=== PATIENT | male | born 1990 | race Caucasian/White ===

== ENCOUNTER 2017-04-16 18:09 | Emergency (ER) | payer OTHER ==
[~2017-04-16] VITALS: Ht 172.7 cm; Wt 83.9 kg
[2017-04-16 19:11] VITALS: BP 124/76
[2017-04-16] MEDS ORDERED: TETRACAINE 0.5% OPHTH SOLUTION 4ML BOTTLE. OS ONE (19:30)
--- NOTE | 2017-04-16 19:31 | PHYS DOC ---
Past Medical History Past Medical History: No Pertinent History Past Surgical History: No Surgical History Alcohol Use: Occasionally Drug Use: None Adult General Chief Complaint Chief Complaint: FOREIGN BODY/EYES [facility] HPI Patient is a 26 year old male presents to the emergency department stating that he has a foreign body in his left eye. He is unsure if it's a piece of metal or paint fragment. He states he was working on his car approximately 4 hours ago when something fell into his left eye. He has not tried to irrigate the eye nor is he tried to remove the foreign object. Patient denies any blurred vision, he denies any visual difficulty. He states his last tetanus was a few months ago. Review of Systems Review of Systems Constitutional: Denies fever or chills [] Eyes: Denies change in visual acuity, redness, C/o left eye HENT: Denies nasal congestion or sore throat [] Respiratory: Denies cough or shortness of breath [] Cardiovascular: No additional information not addressed in HPI [] GI: Denies abdominal pain, nausea, vomiting, bloody stools or diarrhea [] : Denies dysuria or hematuria [] Musculoskeletal: Denies back pain or joint pain [] Integument: Denies rash or skin lesions [] Neurologic: Denies headache, focal weakness or sensory changes [] Endocrine: Denies polyuria or polydipsia [] Current Medications Current Medications Current Medications Medications (Trade) Dose Ordered Sig/[facility] Start Time Stop Time Status Last Admin Dose Admin Tetracaine HCl (Tetracaine) 1 drop 1X ONCE 04/16/17 19:30 04/16/17 19:31 DC Allergies Allergies Allergies Coded Allergies Type Severity Reaction Last Updated Verified No Known Drug Allergies 04/16/17 No Physical Exam Physical Exam Constitutional: Well developed, well nourished, no acute distress, non-toxic appearance. [] HENT: Normocephalic, atraumatic, bilateral external ears normal, oropharynx moist, no oral exudates, nose normal. [] Eyes: PERRLA, EOMI, conjunctiva normal, no discharge. Patient was noted to have a foreign object on the left thigh at approximately the 9:00 area. Neck: Normal range of motion, no tenderness, supple, no stridor. [] Cardiovascular: Patient pink warm and dry Lungs & Thorax: No respiratory distress noted Skin: Warm, dry, no erythema, no rash. [] Back: No tenderness Extremities: No tenderness, no cyanosis, no clubbing, ROM intact, no edema. [] Neurologic: Alert and oriented X 3, normal motor function, normal sensory function, no focal deficits noted. [] Psychologic: Affect normal, judgement normal, mood normal. [] Current Patient Data Vital Signs Vital Signs Date Time Temp Pulse Resp B/P (MAP) Pulse Ox O2 Delivery O2 Flow Rate FiO2 04/16/17 19:11 98.3 69 16 96 Room Air 98.3 EKG EKG [] Radiology/Procedures Radiology/Procedures [] Course & Med Decision Making Course & Med Decision Making Pertinent Labs and Imaging studies reviewed. (See chart for details) One drop of tetracaine was placed into the left eye. Foreign body was removed with a Q-tip. Eye was irrigated with normal saline which patient states his eye feels much better. Patient will be placed on ofloxacin for potential eye infection. He'll be discharged home in stable condition recommended following up with ophthalmology in the next 24-48 hours. Since symptoms to return back to emergency department as been provided. [] Dragon Disclaimer Dragon Disclaimer This electronic medical record was generated, in whole or in part, using a voice recognition dictation system. Departure Departure Impression: Primary Impression: Foreign body of left eye Disposition: 01 HOME, SELF-CARE Condition: STABLE Referrals: NO PCP (PCP) GIL SAMUEL MD Patient Instructions: Eye - Foreign Body, [id number] Additional Instructions: Activity as tolerated. Tylenol or ibuprofen for pain and discomfort. Medications as prescribed area Follow-up with an pigment presser in the next 24-48 hours. Return back to emergency prior signs symptoms of become worse. Scripts Ofloxacin (OFLOXACIN) 10 Ml Drops 1 DROP OS QID, #5 ML Prov: NAWAF [employer] RESEARCH [employer] DEVELOPMENT ENGINEER 04/16/17 NAWAF P[employer] RESEARCH AND DEVELOPMENT ENGINEER April 16, 2017 19:31
[2017-04-16] MEDS ORDERED: OFLO5DRO4 OS (20:03)
== END 2017-04-16 20:10 | disposition home or self-care (01) ==
LOC: ER 18:09
DX: T15.92XA Foreign body on external eye, part unspecified, left eye, initial encounter (principal)
CPT/HCPCS: 65205; 99284-25